=== PATIENT | male | born 1965 | race Caucasian/White ===

== ENCOUNTER → 2016-09-25 | Outpatient (CLI) | payer OTHER ==
--- NOTE | 2016-09-25 08:33 | CT ---
EXAMINATION TYPE: CT ChestAbdPelvis w con DATE OF EXAM: 09/25/2016 8:14 AM COMPARISON: NONE HISTORY: Patient has no complaints at time of study. Abnormal US showing possible testicular mass. CT DLP: 617.9 mGycm Automated exposure control for dose reduction was used. TECHNIQUE: Helical acquisition through the abdomen and pelvis was obtained without oral contrast but following the intravenous administration of 100 mL of Omnipaque 300. The data was formatted in the a xial, coronal and sagittal projections. FINDINGS: There is some minimal inflammatory change in the lateral aspect of the right lung with a tr ee-in-bud appearance, best seen on image 38. The lungs are otherwise clear. There is some shotty axillary lymph nodes. No pathologic lymph nodes are seen in the axilla, mediasti nal or hilar regions. The heart is not enlarged. There is no pleural or pericardial fluid. Within the abdomen, the liver, spleen and gallbladder are normal. Both adrenal glands are normal. Both kidneys demonstrate function and appear morphologically normal. The pancreas is unremarkable. There is no significant retroperitoneal, iliac or inguinal adenopathy. The bladder is unremarkable. Both the large and small bowel appear normal. The appendix is not visualized with certainty. No free fluid and no free air is seen. There is a sclerotic focus in the symphysis pubis on the left. This likely represents a bone island. 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 There is degenerative disc disease throu ghout the lumbar spine. No bony destructive lesion is seen. IMPRESSION: 1. NO EVIDENCE OF METASTATIC DISEASE AT THIS TIME. 2. MINIMAL INFLAMMATORY CHANGE IN THE RIGHT MIDLUNG. 3. SCLEROTIC FOCUS IN THE LEFT SYMPHYSIS PUBIS LIKELY REPRESENTS A BONE ISLAND. 4. DEGENERATIVE CHANGE WITHIN THE SPINE.
== END | disposition home or self-care (01) ==
LOC: RADCTMAIN 06:41
PROVIDERS: ATTEND Orthopaedic Surgery
DX: N43.3 Hydrocele, unspecified (principal); N62 Hypertrophy of breast; M62.58 Muscle wasting and atrophy, not elsewhere classified, other site; J98.4 Other disorders of lung
CPT/HCPCS: 71260; 74177; Q9967